=== PATIENT | female | born 1970 | race Caucasian/White ===

== ENCOUNTER 2017-11-10 09:15 | Outpatient (CLI) | payer OTHER ==
--- NOTE | 2017-11-10 10:45 | Mammography Report ---
Screening mammogram: Routine views demonstrates a discrete nodular asymmetry in the superolateral right breast and a small asymmetry noted in the posterior left breast only visualized in the lateral projection. The overall fibroglandular pattern is heterogeneous and symmetric in distribution but not otherwise remarkable. CAD used. Impression: Bilateral asymmetries. Recommendation: The patient's prior exams are being requested for comparison before recommendation is made. Followup report will be issued when these are made available. BI-RADS CATEGORY: 0 = Needs additional imaging evaluation ACR BI-RADS MAMMOGRAPHIC CODES: 0 = Needs additional imaging evaluation; 1 = Negative; 2 = Benign; 3 = Probably benign; 4 = Suspicious; 5 = Malignant; 6 = Known biopsy-proven malignancy COMMENT: 1. Dense breast tissue, i.e., adenosis, fibrocystic changes, etc., may obscure an underlying neoplasm. 2. Approximately 10% of cancers are not detected with mammography. 3. A negative mammography report should not delay biopsy if a clinically suspicious mass is present.
== END 2017-11-10 09:16 | disposition home or self-care (01) ==
LOC: SPVWC 09:15
PROVIDERS: ATTEND Nurse Practitioner Gerontology
DX: Z12.31 Encounter for screening mammogram for malignant neoplasm of breast (principal)
CPT/HCPCS: 77067

== ENCOUNTER 2017-12-15 10:42 | Outpatient (CLI) | payer OTHER ==
--- NOTE | 2017-12-15 12:28 | Mammography Report ---
BILATERAL DIGITAL DIAGNOSTIC MAMMOGRAM AND LEFT BREAST ULTRASOUND: 12/15/17 10:42:00 CLINICAL: Recalled for bilateral asymmetries. COMPARISON:11/10/17 screening FINDINGS: Additional bilateral views were obtained and bilateral circumscribed densities persist. The right asymmetry is is unchanged compared to a 03/05/14 DEE mammogram. Ultrasound of the left breast (including all four quadrants and the retroareolar area) was performed and demonstrated normal fibroglandular and fatty structures. No mass, cyst or shadowing to correlate with a 6 mm density identified only on MLO and MLO spot compression views. IMPRESSION: A benign nodule or cyst in the outer right breast and a probably benign 6 mm nodular cyst of the left breast. BI-RADS CATEGORY: 3 - - Probably Benign RECOMMENDATION: Six month followup left mammogram and routine screening of the right breast. ACR BI-RADS MAMMOGRAPHIC CODES: 0 = Needs additional imaging evaluation; 1 = Negative; 2 = Benign; 3 = Probably benign; 4 = Suspicious; 5 = Malignant; 6 = Known biopsy-proven malignancy COMMENT: 1. Dense breast tissue, i.e., adenosis, fibrocystic changes, etc., may obscure an underlying neoplasm. 2. Approximately 10% of cancers are not detected with mammography. 3. A negative mammography report should not delay biopsy if a clinically suspicious mass is present. COMMENT: Patient follow-up letters are generated via our [employer] application.
--- NOTE | 2017-12-15 15:04 | Ultrasound Report ---
BILATERAL DIGITAL DIAGNOSTIC MAMMOGRAM AND LEFT BREAST ULTRASOUND: 12/15/17 10:42:00 CLINICAL: Recalled for bilateral asymmetries. COMPARISON:11/10/17 screening FINDINGS: Additional bilateral views were obtained and bilateral circumscribed densities persist. The right asymmetry is is unchanged compared to a 03/05/14 DEE mammogram. Ultrasound of the left breast (including all four quadrants and the retroareolar area) was performed and demonstrated normal fibroglandular and fatty structures. No mass, cyst or shadowing to correlate with a 6 mm density identified only on MLO and MLO spot compression views. IMPRESSION: A benign nodule or cyst in the outer right breast and a probably benign 6 mm nodular cyst of the left breast. BI-RADS CATEGORY: 3 - - Probably Benign RECOMMENDATION: Six month followup left mammogram and routine screening of the right breast.
== END 2017-12-15 10:43 | disposition home or self-care (01) ==
LOC: SPVWC 10:42
PROVIDERS: ATTEND Nurse Practitioner Gerontology
DX: R92.2 Inconclusive mammogram (principal)
CPT/HCPCS: 77066

== ENCOUNTER 2018-05-02 12:28 | Observation (INO) | payer OTHER ==
[2018-04-27 10:28] LABS: Hematocrit 38.8 % (30.3-42.9); Hemoglobin 13.3 gm/dl (10.1-14.3); Mean Corpuscular HGB Conc 34 % (30-34); Mean Corpuscular Hemoglobin 30 pg (28-32); Mean Corpuscular Volume 88 fl (79-97); Platelet Count 228 K/mm3 (140-440); Red Blood Count 4.42 M/mm3 (3.65-5.03); Red Cell Distribution Width 13.9 % (13.2-15.2)
[2018-04-27 11:33] LABS: Anisocytosis 1+; Total Cells Counted 100
[2018-04-27 11:34] LABS: Platelet Estimate Cons
--- NOTE | 2018-04-28 06:39 | Anesthesia Consultation ---
Anesthesia Consult and Med Hx Date of service: 04/28/18 - Airway Anesthetic Teeth Evaluation: Good ROM Head & Neck: Adequate Mental/Hyoid Distance: Adequate Mallampati Class: Class I Intubation Access Assessment: Good - Pulmonary Exam CTA: Yes - Cardiac Exam Cardiac Exam: RRR - Pre-Operative Health Status ASA Pre-Surgery Classification: ASA2 Proposed Anesthetic Plan: General Nerve Block: TAP block - Central Nervous System Hx Psychiatric Problems: No - Gastrointestinal Hx Gastroesophageal Reflux Disease: Yes (Mild, controlled) - Endocrine Hx Non-Insulin Dependent Diabetes: No - Other Systems Hx Cancer: No
[2018-05-02] MEDS ORDERED: NACL BACTERIOSTATIC INFILTRATI ONE (13:15)
[2018-05-02] MEDS ORDERED: PERCOCET 5/325 PO PRN ×2 (13:29→16:47)
[2018-05-02] MEDS ORDERED: ZOFRAN IV PRN ×2 (13:29→16:47)
[2018-05-02] MEDS ORDERED: DILAUDID IV PRN (13:29)
[2018-05-02] MEDS ORDERED: LACTATED RINGERS 1,000 ML IV SCH (13:47)
--- NOTE | 2018-05-02 13:58 | History and Physical Report ---
History of Present Illness Date of examination: 05/02/18 Chief complaint: Prolonged heavy vaginal bleeding History of present illness: Pt is a 47yo HF LMP 12/01/17 presents for surgical evaluation and treatment of prolonged heavy vaginal bleeding. A pelvic u/s showed the uterus to be 12 x 6.4 x 4.5 cm and showed possible adenomyosis. Endometrial biopsy was performed which showed benign polyps. She was therefore scheduled for a Robotic-Assisted Total Hysterectomy with Left salpingo-oophorectomy. Past History Past Medical History: no pertinent history Past Surgical History: REHABILITATION COUNSELOR/uterine surgery, other (Bilateral tubal ligation; right salpingo-oophorectomy) Family/Genetic History: none Social history: no significant social history, Medications and Allergies Allergies Allergy/AdvReac Type Severity Reaction Status Date / Time No Known Allergies Allergy Unverified 04/25/18 15:35 Home Medications Medication Instructions Recorded Confirmed Last Taken Type No Known Home Medications [No 10/23/15 04/25/18 Unknown History Reported Home Medications] Active Meds: Active Medications Dexamethasone (Decadron) 4 mg IV PREOP NR Stop: 05/02/18 14:01 Famotidine (Pepcid) 20 mg IV QDAY YUNIOR Hydromorphone HCl (Dilaudid) 0.25 mg IV Q10MIN PRN PRN Reason: Pain, Moderate (4-6) Hydromorphone HCl (Dilaudid) 0.5 mg IV Q10MIN PRN PRN Reason: Pain , Severe (7-10) Lactated Ringer's (Lactated Ringers) 1,000 mls @ 75 mls/hr IV DIRECT YUNIOR Stop: 05/02/18 23:59 Cefazolin Sodium (Ancef/Sterile Water 2 Gm/20 Ml) 2 gm in 20 mls @ 80 mls/hr IV PREOP YUNIOR; Protocol Midazolam HCl (Versed) 2 mg IV PREOP NR Stop: 05/02/18 23:59 Ondansetron HCl (Zofran) 4 mg IV ONCE PRN PRN Reason: Nausea And Vomiting Oxycodone/Acetaminophen (Percocet 5/325) 1 tab PO ONCE PRN PRN Reason: Pain, Moderate (4-6) Scopolamine (Transderm-Scop) 1 each TD PREOP NR Stop: 05/02/18 23:59 Review of Systems All systems: negative - Vital Signs Vital signs: Vital Signs Temp Pulse Resp BP 99.3 F 76 18 114/78 04/27/18 09:45 04/27/18 09:45 04/27/18 09:45 04/27/18 09:45 Temp Pulse Resp BP Pulse Ox 99.3 F 85 20 133/79 99 05/02/18 13:05 05/02/18 13:05 05/02/18 13:05 05/02/18 13:05 05/02/18 13:05 - Physical Exam Breasts: Positive: deferred Cardiovascular: Regular rate Lungs: Positive: Clear to auscultation Abdomen: Positive: normal appearance, soft Vagina: Positive: normal moisture Cervix: Positive: lesion Uterus: Positive: enlarged Extremities: Positive: normal Results Result Diagrams: 04/27/18 08:15 All other labs normal. Ultrasound: report reviewed Assessment and Plan - Patient Problems (1) Menorrhagia with irregular cycle Onset Date: 05/02/18 Current Visit: Yes Status: Acute Plan to address problem: A: Menorrhagia Suspected adenomyosis P: Admit for Robotic Assisted Total Hysterectomy with possible left salpingo- oophorectomy (2) Adenomyosis Onset Date: 05/02/18 Current Visit: Yes Status: Acute
[2018-05-02] MEDS ORDERED: ANCEF/STERILE WATER 2 GM/20 ML 2 GM/20 ML SYRINGE IV SCH (14:00)
[2018-05-02] MEDS ORDERED: DECADRON IV NR (14:00)
[2018-05-02] MEDS ORDERED: TRANSDERM-SCOP TD NR (14:00)
[2018-05-02] MEDS ORDERED: VERSED IV NR (14:00)
[2018-05-02] MEDS ORDERED: ZEMURON IV ONE (14:14)
[2018-05-02] MEDS ORDERED: XYLOCAINE MPF 2% ONE (14:14)
[2018-05-02] MEDS ORDERED: DIPRIVAN 10 MG/ML IV ONE ×2 (14:16→15:22)
[2018-05-02] MEDS ORDERED: SUBLIMAZE ONE (14:16)
[2018-05-02] MEDS ORDERED: NEOSPORIN GU IR ONE ×2 (14:35→15:50)
[2018-05-02] MEDS ORDERED: DILAUDID ONE (15:38)
[2018-05-02] MEDS ORDERED: MARCAINE-EPI 0.5%-1:200,000 INFILTRATI ONE (15:49)
[2018-05-02] MEDS ORDERED: NACL 0.9% IR ONE ×2 (15:49→15:50)
[2018-05-02] MEDS ORDERED: MARCAINE-EPI 0.25%-1:200,000 INFILTRATI ONE (15:51)
[2018-05-02] MEDS ORDERED: ROBINUL ONE (16:26)
[2018-05-02] MEDS ORDERED: ZOFRAN ONE (16:26)
[2018-05-02] MEDS ORDERED: BLOXIVERZ ONE (16:26)
[2018-05-02] MEDS ORDERED: PHENERGAN PR PRN (16:47)
[2018-05-02] MEDS ORDERED: MILK OF MAGNESIA PO PRN (16:47)
[2018-05-02] MEDS ORDERED: TYLENOL PO PRN (16:47)
[2018-05-02] MEDS ORDERED: NORCO 5/325 PO PRN (16:47)
[2018-05-02] MEDS ORDERED: NARCAN 0.4 MG/1 ML IV PRN (16:52)
[2018-05-02] MEDS ORDERED: BENADRYL IV PRN (16:52)
[2018-05-02] MEDS ORDERED: CLIMARA TD SCH (17:00)
[2018-05-02] MEDS ORDERED: NACL 0.9% 1000 ML 1,000 ML IV SCH (17:00)
[2018-05-02] MEDS ORDERED: ANCEF/NS 1 GM/50 ML 1 GM/50 ML BAG IV SCH (17:00)
[2018-05-02] MEDS ORDERED: D5LR 1,000 ML IV SCH (17:00)
[2018-05-02] MEDS ORDERED: MORPHINE PCA 30MG/30ML IV SCH (17:00)
--- NOTE | 2018-05-02 17:01 | Operative Report ---
Operative Report Operative Report: Date of procedure: 05/02/2018 Pre-operative diagnosis: 1. Menorrhagia 2. Suspected adenomyosis Post-operative diagnosis: Same Procedure name(s): 1. Robotic-assisted total hysterectomy 2. Left salpingo- oophorectomy Surgeon: Braydon Mane MD Manager Background: Aida Auguste CSA Anesthesia: Gen. endotracheal intubation by Dr. Dominguez EBL: 70 mL's Findings: A 12 week size uterus with left tube and ovary adherent to the posterior uterine wall. Absent right fallopian tube and ovary. Pelvic adhesions. Procedure: After the patient's first correctly identified she was prepped and draped in the usual sterile fashion and placed in the dorsolithotomy position. The bladder was first catheterized using Brooks catheter and the speculum was placed in the vagina and the anterior lip of the cervix was grasped using a single-tooth tenaculum, and the medium Vesicare cup was placed. The tenaculum and speculum was then removed from the vagina and attention was then turned to the abdomen. The skin knife was used to make a small incision approximately 5 cm above the umbilicus through which a 12 mm trocar was placed under direct visualization. After adequate amount of abdominal insufflation visualization of the pelvic organs found the uterus to be enlarged and the left fallopian tube and ovary was adherent to the posterior uterine wall. The right fallopian tube and ovary were absent. A right and left paramedian incision was made through which the 8 mm trochars were placed under direct visualization and a 5 mm trocar was placed in the right lower quadrant. The patient was then placed in steep Trendelenburg positioning and the robot was docked on the patient's left side. After all the robotic ports were connected and adequate functioning of the robotic arms were tested the surgeon then proceeded to the console to begin the hysterectomy. First the left round ligament was grasped, cauterized and cut, the left infundibulopelvic ligament was grasped, cauterized and cut, and the left fallopian tube also grasped, cauterized and cut thus freeing the left ovary from the left pelvic sidewall, although the both adherence to the posterior uterine wall. The same procedure was performed on the right. The right round ligament was grasped, cauterized and cut, the right infundibulopelvic ligament was grasped, cauterized and cut, thus freeing the right side of the uterus from the right pelvic sidewall. The bladder flap was taken down anteriorly and the uterine vessels were grasped, cauterized and cut bilaterally. The cardinal ligaments were sequentially grasped, cauterized and cut down to the level of the uterosacral ligaments. At this time the posterior colpotomy was performed over the Vcare cup, and the cervix was circumscribed beginning posteriorly and meeting anteriorly until the cervix was freed. The cervix, uterus, left fallopian tube and ovary were then removed through the vagina and sent to pathology. The vaginal cuff was then closed using 2-0 Vloc suture in a running fashion. Irrigation was then performed and after good hemostasis was achieved the procedure was considered complete. The Tisseel sealant was then sprayed across the vaginal cuff site, and after excellent hemostasis was assured Interceed was placed across the vaginal cuff site. All instruments were then removed from the abdominal cavity. And each incision was closed using 0 Vicryl suture in a [id number] configuration on the fascia followed by 4-0 Monocryl suture in a sub-cuticular fashion on the skin. Each incision was also infiltrated using 0.5% Marcaine solution. The vaginal pack was removed. The patient tolerated the procedure well and was transported to the recovery room in stable condition.
[2018-05-02] MEDS: DILAUDID IV PRN ×2 (17:25→17:35)
[2018-05-02] MEDS: TORADOL IV SCH (20:17)
[2018-05-02] MEDS: ANCEF/NS 1 GM/50 ML 1 GM/50 ML BAG IV SCH (20:18)
[2018-05-02] MEDS ORDERED: COLACE PO SCH (22:00)
[2018-05-03] MEDS: TORADOL IV SCH ×2 (02:15→10:38)
[2018-05-03] MEDS: ANCEF/NS 1 GM/50 ML 1 GM/50 ML BAG IV SCH (04:10)
[2018-05-03 05:36] LABS: Hematocrit 33.7 % (30.3-42.9); Hemoglobin 11.7 gm/dl (10.1-14.3)
--- NOTE | 2018-05-03 08:07 | Progress Note ---
Assessment and Plan - Patient Problems (1) Menorrhagia with irregular cycle Onset Date: 05/02/18 Current Visit: Yes Status: Resolved (2) Adenomyosis Onset Date: 05/02/18 Current Visit: Yes Status: Resolved (3) Status post robot-assisted surgical procedure Onset Date: 05/03/18 Current Visit: Yes Status: Resolved Plan to address problem: A: S/P RATH with LSO - POD #1 Doing well P: May go home today. Subjective - Subjective Date of service: 05/03/18 Principal diagnosis: s/p RATH - POD #1 Interval history: Pt is s/p a Robotic Assisted Total Hysterectomy with Left salpingo-oophorectomy , and feeling well. She is tolerating a liquid diet without nausea or vomiting, ambulating and voiding without difficulty. Patient reports: appetite normal, voiding normally, pain well controlled, ambulating normally, no dizzy ambulation, no flatus, no nauseated Objective - Vital Signs Latest vital signs: Vital Signs Temp Pulse Pulse Resp BP BP Pulse Ox 05/03/18 04:00 98.7 F 74 18 101/67 05/03/18 02:00 16 05/03/18 00:00 98.7 F 72 16 105/64 05/02/18 22:00 16 05/02/18 20:00 88 16 05/02/18 19:30 98.7 F 77 16 118/69 05/02/18 19:27 16 05/02/18 18:10 98.5 F 84 16 124/69 96 05/02/18 17:48 86 15 116/65 100 05/02/18 17:46 15 05/02/18 17:35 16 05/02/18 17:28 84 18 119/68 100 05/02/18 17:25 18 05/02/18 17:13 86 18 124/68 100 05/02/18 16:58 82 19 127/68 100 05/02/18 16:53 98.9 F 87 18 122/54 100 05/02/18 13:05 99.3 F 85 20 133/79 99 Intake and Output 05/02/18 05/03/18 05/03/18 22:59 06:59 14:59 Intake Total 250 300 Output Total 1600 1500 Balance -1350 -1200 Intake: IV 250 ANCEF/NS 1 GM/50 ML 1 gm 50 In 50 ml @ 100 mls/hr IV Q8H [facility] Rx#:[id number] Intake, Free Water 300 Output: Urine 1600 1500 Indwelling Catheter 900 1500 Uretheral (Brooks) 200 Other: Total, Output Amount 300 900 Voiding Method Indwelling Catheter - Exam Breasts: Present: deferred Cardiovascular: Present: Regular rate Lungs: Present: Clear to auscultation Abdomen: Present: normal appearance, soft Extremities: Present: normal Incision: Present: normal, dry, intact - Labs Labs: Laboratory Tests 04/27/18 05/02/18 05/03/18 08:15 13:15 05:07 WBC 6.5 RBC 4.42 Hgb 13.3 11.7 Hct 38.8 33.7 MCV 88 MCH 30 MCHC 34 RDW 13.9 Plt Count 228 Add Manual Diff Complete Total Counted 100 Seg Neuts % (Manual) 53.0 Band Neutrophils % 0 Lymphocytes % (Manual) 31.0 Reactive Lymphs % (Man) 0 Monocytes % (Manual) 5.0 Eosinophils % (Manual) 10.0 H Basophils % (Manual) 1.0 Metamyelocytes % 0 Myelocytes % 0 Promyelocytes % 0 Blast Cells % 0 Nucleated RBC % Not Reportable Seg Neutrophils # Man 3.4 Band Neutrophils # 0.0 Lymphocytes # (Manual) 2.0 Abs React Lymphs (Man) 0.0 Monocytes # (Manual) 0.3 Eosinophils # (Manual) 0.7 H Basophils # (Manual) 0.1 Metamyelocytes # 0.0 Myelocytes # 0.0 Promyelocytes # 0.0 Blast Cells # 0.0 WBC Morphology Not Reportable Hypersegmented Neuts Not Reportable Hyposegmented Neuts Not Reportable Hypogranular Neuts Not Reportable Smudge Cells Not Reportable Toxic Granulation Not Reportable Toxic Vacuolation Not Reportable Dohle Bodies Not Reportable Pelger-Huet Anomaly Not Reportable Tony Rods Not Reportable Platelet Estimate Cons Clumped Platelets Not Reportable Plt Clumps, EDTA Not Reportable Large Platelets Not Reportable Giant Platelets Not Reportable Platelet Satelliting Not Reportable Plt Morphology Comment Not Reportable RBC Morphology Not Reportable Dimorphic RBCs Not Reportable Polychromasia Not Reportable Hypochromasia Not Reportable Poikilocytosis Not Reportable Anisocytosis 1+ Microcytosis Not Reportable Macrocytosis Not Reportable Spherocytes Not Reportable Pappenheimer Bodies Not Reportable Sickle Cells Not Reportable Target Cells Not Reportable Tear Drop Cells Not Reportable Ovalocytes Not Reportable Helmet Cells Not Reportable [place] Bodies Not Reportable [place] Rings Not Reportable [place] Cells Not Reportable Bite Cells Not Reportable Crenated Cell Not Reportable Elliptocytes Not Reportable Acanthocytes (Spur) Not Reportable Rouleaux Not Reportable Hemoglobin C Crystals Not Reportable Schistocytes Not Reportable Malaria parasites Not Reportable Orestes Bodies Not Reportable Hem Pathologist Commnt No Blood Type O NEGATIVE Antibody Screen Negative
--- NOTE | 2018-05-03 09:38 | Discharge Summary ---
Providers - Providers Date of Admission: 05/02/18 16:47 Date of discharge: 05/03/18 Attending physician: CHLOÉ PEREZ Primary care physician: BRIGHT HICKS Hospitalization Reason for admission: other (Menorrhagia; Suspected Adenomyosis) Procedure: other (Robotic Assisted Total Hysterectomy with Left salpingoOophorectomy) Laceration: none Incision: normal, dry, intact Other procedures: none complications: none Discharge diagnosis: other (S/P RATH with LSO) Hospital course: Pt is a 47yo HF LMP 12/01/17 who presented for surgical evaluation and treatment of prolonged heavy vaginal bleeding. A pelvic u/s showed the uterus to be 12 x 6.4 x 4.5 cm and showed possible adenomyosis. Endometrial biopsy was performed which showed benign polyps. She underwent an uncomplicated Robotic-Assisted Total Hysterectomy with Left salpingo-oophorectomy, and tolerated the procedure well. By POD #1 she was tolerating a liquid diet without nausea or vomiting, ambulating and voiding without difficulty. She was therefore discharged to home on POD #1 in stable condition. Condition at discharge: Good Disposition: DC-01 TO HOME OR SELFCARE - Discharge Diagnoses (1) Menorrhagia with irregular cycle Status: Resolved (2) Adenomyosis Status: Resolved Plan - Discharge Medications Prescriptions: HYDROcodone/APAP 5-325 [[place] 5-325 mg TAB] 1 each PO Q6HR PRN #30 tablet PRN Reason: Pain, Moderate (4-6) Ibuprofen [Motrin] 800 mg PO Q8HR PRN #30 tablet PRN Reason: Moder Pain Unrelieved By [place] - Provider Discharge Summary Activity: routine, no sex for 6 weeks, no heavy lifting 4 weeks, no strenuous exercise Diet: routine Instructions: routine Additional instructions: [] Smoking cessation referral if applicable(refer to patient education folder for contact #) [] Refer to [facility] Booklet Call your doctor immediately for: * Fever > 100.5 * Heavy vaginal bleeding ( >1 pad per hour) * Severe persistent headache * Shortness of breath * Reddened, hot, painful area to leg or breast * Drainage or odor from incision. * Keep incision clean and dry at all times and follow doctor's instructions regarding bathing/showering - Follow up plan Follow up: BRIGHT HICKS MD [Primary Care Provider] - 7 Days CHLOÉ PEREZ MD [Staff Physician] - 14 Days
[2018-05-03] MEDS ORDERED: PEPCID IV SCH (10:00)
[2018-05-03 14:02] VITALS: BP 96/57
== END 2018-05-03 14:00 | disposition home or self-care (01) ==
LOC: OR 12:28 → OB 16:47
PROVIDERS: ADMIT Obstetrics & Gynecology; ATTEND Obstetrics & Gynecology
DX: N92.1 Excessive and frequent menstruation with irregular cycle (principal); D25.9 Leiomyoma of uterus, unspecified; N80.0 Endometriosis of uterus; N84.0 Polyp of corpus uteri; K21.9 Gastro-esophageal reflux disease without esophagitis
CPT/HCPCS: 36415; 58571; 81025; 85007; 85014; 85018; 85025; 86850; 86900; 86901; 88307; 96365; 96366; 96375; 96376; A4217; C1765; C9250; G0378; J0690; J1100; J1170; J1885; J2250; J2270; J2405; J2704; J2710; J3010; J7120; J7121; S2900

== ENCOUNTER 2018-05-14 00:16 | Emergency (ER) | payer OTHER ==
[2018-05-14 00:28] VITALS: BP 121/65
[2018-05-14 02:00] LABS: Basophils # (Auto) 0.1 K/mm3 (0.0-0.1); Basophils % (Auto) 0.5 % (0.0-1.8); Eosinophils # (Auto) 0.9 K/mm3 (0.0-0.4); Hematocrit 35.8 % (30.3-42.9); Hemoglobin 12.1 gm/dl (10.1-14.3); Lymphocytes # (Auto) 2.2 K/mm3 (1.2-5.4); Lymphocytes % (Auto) 17.5 % (13.4-35.0); Mean Corpuscular HGB Conc 34 % (30-34); Mean Corpuscular Hemoglobin 30 pg (28-32); Mean Corpuscular Volume 88 fl (79-97); Monocytes # (Auto) 1.2 K/mm3 (0.0-0.8); Monocytes % (Auto) 9.6 % (0.0-7.3); Platelet Count 239 K/mm3 (140-440); Red Blood Count 4.05 M/mm3 (3.65-5.03); Red Cell Distribution Width 13.9 % (13.2-15.2)
[2018-05-14 02:04] LABS: Albumin 4.2 g/dL (3.9-5); Calcium 9.6 mg/dL (8.4-10.2)
[2018-05-14 02:54] LABS: Bilirubin,Urine NEG (Negative); Blood,Urine MOD (Negative); Color,Urine Straw (Yellow); Protein,Urine <15 mg/dL mg/dL (Negative); Urobilinogen,Urine < 2.0 mg/dL (<2.0)
== END 2018-05-14 04:07 | disposition left against medical advice (07) ==
LOC: ED 00:16
DX: R10.9 Unspecified abdominal pain (principal); R42 Dizziness and giddiness; Z53.21 Procedure and treatment not carried out due to patient leaving prior to being seen by health care provider
CPT/HCPCS: 36415; 80053; 81001; 85025